=== PATIENT | female | born 1995 | race Caucasian/White ===

== ENCOUNTER 2018-04-07 20:41 | Emergency (ER) | payer SELFPAY ==
[~2018-04-07] VITALS: Ht 160 cm; Wt 54.4 kg
[~2018-04-07 20:41] MED LIST: CIPROFLOXACIN500 M2 ORAL; NKM
[2018-04-07] MEDS ORDERED: Norco 5mg/325mg tab ORAL ONE (21:00)
[2018-04-07] MEDS ORDERED: IBUPROFEN600 MG ORAL (21:06)
--- NOTE | 2018-04-07 21:07 | Emergency Room Report ---
History of Present Illness General Chief Complaint: Lower Extremity Injury Source: Patient Present Illness HPI Is a 22-year-old female with no past medical history. She presents with chief complaint of pain to the bottom of her great toe. Onset for about a week but worsened last 2 days. Pain with palpation or pushing off. Unable to walk well because of the pain. No trauma. No fever chills but no nausea no vomiting. Pain is sharp and throbbing in nature. 9 out of 10 when she to walk on it. Allergies: Coded Allergies: No Known Allergies (Unverified , 03/04/14) Patient History Past Medical History: see triage record, old chart reviewed Past Surgical History: none Pertinent Family History: none Social History: Denies: smoking Now: No Immunizations: other Reviewed Nursing Documentation: PMH: Agreed; PSxH: Agreed Nursing Documentation-PMH Past Medical History: No Stated History Review of Systems Eye: Denies: eye pain, blurred vision ENT: Denies: ear pain, nose congestion, throat swelling Respiratory: Denies: cough, shortness of breath Cardiovascular: Denies: chest pain, palpitations Gastrointestinal: Denies: abdominal pain, diarrhea, nausea, vomiting Musculoskeletal: Reports: joint pain; Denies: back pain Skin: Denies: rash Neurological: Denies: headache, numbness Endocrine: Denies: increased thirst, increased urine Hematologic/Lymphatic: Denies: easy bruising All Other Systems: negative except mentioned in HPI Physical Exam Vital Signs Date Time Temp Pulse Resp B/P (MAP) Pulse Ox O2 Delivery O2 Flow Rate FiO2 04/07/18 20:43 98.6 88 16 119/72 97 Room Air 98.6 vitals [email or web address] [id number] EP Interpretation: reviewed, normal General Appearance: well appearing, no apparent distress, alert Head: normocephalic, atraumatic Eyes: bilateral eye PERRL, bilateral eye EOMI ENT: hearing grossly normal, normal pharynx Neck: full range of motion, supple, no meningismus Respiratory: chest non-tender, lungs clear, normal breath sounds Cardiovascular #1: regular rate, rhythm, no murmur Gastrointestinal: normal bowel sounds, non tender, no mass, no organomegaly, no bruit, non-distended Musculoskeletal: back normal, gait/station normal, tender - right foot: Tenderness o the ball of the foot o flexion and extension of the great toe. Neurologic: alert, oriented x3 Psychiatric: mood/affect normal Skin: warm/dry Procedures Splinting Splinting : Consent: Verbal Location: foot Pre-Made Type: ortho shoe Pre-Proc Neuro Vasc Exam: normal Post-Proc Neuro Vasc Exam: normal Patient Tolerated: Well Complications: None Medical Decision Making Diagnostic Impression: Primary Impression: Toe tendinitis ER Course Patient presents with great toe tendinitis, AKA turf toe. No evidence of fracture dislocation. No evidence of septic joint. We'll discharge home Other X-Ray Diagnostic Results Other X-Ray Diagnostic Results : X-Ray ordered: xr foot, right # of Views/Limited Vs Complete: 3 View Indication: Pain PA Xray: Interpretation reviewed Interpretation: no dislocation, no soft tissue swelling, no fractures Impression: No acute disease Electronically Signed by: Deshaun Bella MD Last Vital Signs Date Time Temp Pulse Resp B/P (MAP) Pulse Ox O2 Delivery O2 Flow Rate FiO2 04/07/18 20:43 98.6 88 16 119/72 97 Room Air 98.6 Status: improved Disposition: HOME, SELF-CARE Condition: Stable Scripts Ibuprofen* (MOTRIN*) 600 Mg Tablet 600 MG ORAL THREE TIMES A DAY, #30 TAB 0 Refills Prov: DESHAUN BELLA M.D. 04/07/18 Referrals: NON PHYSICIAN (PCP) Additional Instructions: Follow up with your doctor in 7 days. If not better, may need referral to see [facility] or orthopedic doctor. Return if symptoms worsen. DESHAUN BELLA M.D. April 07, 2018 21:07
[2018-04-07 21:16] VITALS: BP 119/72
--- NOTE | 2018-04-08 08:57 | Diagnostic Imaging Report ---
Indication: Reason For Exam: PAIN Technique: Right foot, 3 views Comparison: None. Findings: The osseous structures are intact. There is no fracture or destruction. The visualized joints are normal. The soft tissues are unremarkable. Impression: Normal.
== END 2018-04-07 21:52 | disposition home or self-care (01) ==
LOC: EMR 21:00
DX: M77.51 Other enthesopathy of right foot and ankle (principal)
CPT/HCPCS: 29515; 99283

== ENCOUNTER 2019-01-11 23:28 | Emergency (ER) | payer BC ==
[~2019-01-11] VITALS: Ht 160 cm; Wt 52.2 kg
[~2019-01-11 23:28] MED LIST changes: +IBUPROFEN600 MG ORAL
[2019-01-11] MEDS ORDERED: NKM (23:43)
--- NOTE | 2019-01-11 23:45 | NUR ---
ED Nurse Note: pt came to ed from home c/o flu like symptoms x1 day. pt presents with cough, per pt she has pain when coughing 9/10 on chest.
[2019-01-11 23:47] VITALS: BP 117/83
[2019-01-12] MEDS ORDERED: Acetaminophen 500mg (ES) tab ORAL ONE (00:15)
[2019-01-12] MEDS ORDERED: Albuterol ud Inhalation HHN ONE (00:15)
[2019-01-12] MEDS ORDERED: Ipratropium 0.02% Inh Soln 2.5ml UD HHN ONE (00:15)
--- NOTE | 2019-01-12 00:50 | NUR ---
ED Nurse Note: breathing treatment completed
--- NOTE | 2019-01-12 01:00 | NUR ---
ED Nurse Note: chest xray completed
[2019-01-12] MEDS ORDERED: AMOXICILLIN500 MG ORAL (01:11)
[2019-01-12] MEDS ORDERED: TAMIFLU75 MG ORAL (01:11)
[2019-01-12] MEDS ORDERED: PREDNISONE20 MG ORAL (01:11)
[2019-01-12] MEDS ORDERED: ALBUTEROL SULF8.5 GM INH (01:11)
[2019-01-12] MEDS ORDERED: TYLENOL EXTRA500 MG ORAL (01:11)
[2019-01-12] MEDS ORDERED: PROMETHAZINE-C118 M1 ORAL (01:11)
[2019-01-12 01:19] VITALS: BP 127/73
--- NOTE | 2019-01-12 01:20 | NUR ---
ER DISCHARGE NOTE: Patient is cleared to be discharged per ERMD, pt is aox4, on room air, with stable vital signs. pt was given dc and prescription instructions, pt was able to verbalize understanding, pt id band removed. pt is able to ambulate with steady gait. pt took all belongings.
--- NOTE | 2019-01-12 03:20 | Emergency Room Report ---
History of Present Illness General Chief Complaint: Flu Like Symptoms Source: Patient Present Illness HPI 23-year-old female presents ED for evaluation. Complaining of body aches, chills, cough and fever 2 days. Pain is dull, 7 out of 10, nonradiating. Notes multiple episodes of coughing productive with greenish phlegm. Denies sick contacts or recent travel. Did not receive flu shot this year. Notes history of asthma. Denies smoking. No other aggravating relieving factors. Denies any other associated symptoms Allergies: Coded Allergies: No Known Allergies (Unverified , 03/04/14) Patient History Past Medical History: none Past Surgical History: none Pertinent Family History: none Social History: Denies: smoking, alcohol use, drug use Last Menstrual Period: dec Now: No Immunizations: UTD Reviewed Nursing Documentation: PMH: Agreed; PSxH: Agreed Nursing Documentation-PMH Past Medical History: No Stated History Review of Systems All Other Systems: negative except mentioned in HPI Physical Exam Vital Signs Date Time Temp Pulse Resp B/P (MAP) Pulse Ox O2 Delivery O2 Flow Rate FiO2 01/11/19 23:37 100.2 113 16 117/83 98 Room Air Sp02 EP Interpretation: reviewed, normal General Appearance: no apparent distress, alert, GCS 15, non-toxic Head: normocephalic Eyes: bilateral eye normal inspection, bilateral eye PERRL ENT: hearing grossly normal Neck: full range of motion, supple, no meningismus, supple/symm/no masses Respiratory: crackles, wheezing Cardiovascular #1: no edema, tachycardia Gastrointestinal: normal inspection Rectal: deferred Genitourinary: no CVA tenderness Musculoskeletal: normal inspection Neurologic: alert, oriented x3, responsive, motor strength/tone normal, sensory intact, speech normal Psychiatric: normal inspection Skin: normal inspection Lymphatic: normal inspection Medical Decision Making Diagnostic Impression: Primary Impression: Pneumonia Qualified Codes: J18.1 - Lobar pneumonia, unspecified organism Additional Impression: Influenza-like symptoms ER Course Hospital Course 23-year-old female presents to ED complaining of cough, fever, bodyaches Differential diagnoses include: URI, bronchitis, asthma/COPD, pneumonia Clinical course Patient placed on stretcher. After initial history and physical I ordered tylenol, prednisone and nebulizer treatment. Chest x-ray shows right lower lobe infiltrate Upon reassessment patient states cough and symptoms have improved. Discussed findings with patient. We'll treat for pneumonia. We'll add Tamiflu. Given amoxicillin here. per CURB 65 criteria patient can be treated as outpatient at this time. States she has a PMD Diagnosis - pneumonia, influenza like symptoms Stable and discharged home with prescriptions for Rx amoxicillin, tamiflu, tylneol, albuterol, prednisone, promethazine/codeine. Instructed to followup with PMD. Return to ED if symptoms recur or worsen Chest X-Ray Diagnostic Results Chest X-Ray Diagnostic Results : Chest X-Ray Ordered: Yes # of Views/Limited/Complete: 1 View Indication: Other - cough EP Interpretation: Yes Interpretation: no effusion, no pneumothorax, other - RLL infiltrate Impression: Other - pneumonia Electronically Signed by: Electronically signed by Ramses Hough MD Last Vital Signs Date Time Temp Pulse Resp B/P (MAP) Pulse Ox O2 Delivery O2 Flow Rate FiO2 01/12/19 01:19 98.9 107 20 127/73 98 Room Air Status: improved Disposition: HOME, SELF-CARE Condition: Stable Scripts Prednisone* (PREDNISONE*) 20 Mg Tablet 40 MG ORAL DAILY for 5 Days, TAB Prov: Ramses Hough MD 01/12/19 Albuterol Sulfate* (ALBUTEROL SULFATE MDI*) 8.5 Gm Hfa.aer.ad 2 PUFF INH Q6H, #1 EA 0 Refills Prov: Ramses Hough MD 01/12/19 Codeine/Promethazine Hcl* (PROMETHAZINE-CODEINE SYRUP*) 118 Ml Syrup 5 ML ORAL Q6H PRN for For Cough, #118 ML 0 Refills Prov: Ramses Hough MD 01/12/19 Oseltamivir Phosphate (Tamiflu) 75 Mg Capsule 75 MG ORAL TWICE A DAY for 5 Days, CAP Prov: Ramses Hough MD 01/12/19 Amoxicillin* (AMOXIL*) 500 Mg Capsule 500 MG ORAL THREE TIMES A DAY, #21 CAP Prov: Ramses Hough MD 01/12/19 Acetaminophen* (TYLENOL EXTRA STRENGTH*) 500 Mg Tablet 500 MG ORAL Q8H PRN for Prn Headache/Temp > 101, #30 TAB 0 Refills Prov: Ramses Hough MD 01/12/19 Referrals: NOT CHOSEN IPA/,REFERRING (PCP) Patient Instructions: Community-Acquired Pneumonia, Adult, [id number] Ramses Hough MD Jan 12, 2019 03:20
== END 2019-01-12 01:20 | disposition home or self-care (01) ==
LOC: EMR 23:55
DX: J18.9 Pneumonia, unspecified organism (principal); J11.1 Influenza due to unidentified influenza virus with other respiratory manifestations
CPT/HCPCS: 71045; 94640; 99284; J7512

== ENCOUNTER 2019-01-19 15:25 | Emergency (ER) | payer BC, OTHER ==
[~2019-01-19] VITALS: Ht 160 cm; Wt 52.2 kg
[~2019-01-19 15:25] MED LIST changes: +ALBUTEROL SULF8.5 GM INH; +AMOXICILLIN500 MG ORAL; +PREDNISONE20 MG ORAL; +PROMETHAZINE-C118 M1 ORAL; +TAMIFLU75 MG ORAL; +TYLENOL EXTRA500 MG ORAL
--- NOTE | 2019-01-19 15:45 | NUR ---
ED Nurse Note: pt walked in c/o weakness and unrelieved pneumonia sx, pt states she was in ED a week ago and was dx pneumonia and d/c but continued to have sob. pt AA&xo4, gcs=15, skin warm and dry, resp even and unlabored on RA, noted diminished LS, -n/v/d, ambulates w/ steady gait. will cont monitor.
[2019-01-19] MEDS ORDERED: Benzonatate 100mg Perles ORAL ONE (16:00)
[2019-01-19] MEDS ORDERED: Albuterol/Ipratropium 3ml neb HHN ONE (16:00)
--- NOTE | 2019-01-19 16:13 | Emergency Room Report ---
History of Present Illness General Chief Complaint: Generalized Weakness Source: Patient Present Illness HPI 23-year-old female patient presents ER complaining of cough, wheezing, dizziness. Reports dizziness symptoms present after cough. Denies syncope or fainting. Denies history of syncope or fainting episodes. Denies history of heart disease. Previously seen here 1 week ago for pneumonia, was discharged home with antibiotics and medication. Reports has been taking medication as instructed however still having wheezing symptoms. Reports is been using inhaler at home for asthma symptoms however has not improved her symptoms greatly. Denies . Denies fever, chest pain, shortness of breath. Denies hemoptysis. Denies calf pain. Denies recent travel. Denies smoking cigarettes. Denies taking control medication. Denies recent period of immobilization. Denies vision changes. Denies photophobia or phonophobia. Allergies: Coded Allergies: No Known Allergies (Unverified , 03/04/14) Patient History Past Medical History: see triage record Last Menstrual Period: now Now: No Reviewed Nursing Documentation: PMH: Agreed; PSxH: Agreed Nursing Documentation-PMH Past Medical History: No History, Except For Review of Systems All Other Systems: negative except mentioned in HPI Physical Exam Vital Signs Date Time Temp Pulse Resp B/P (MAP) Pulse Ox O2 Delivery O2 Flow Rate FiO2 01/19/19 15:29 98.2 88 20 119/80 97 Room Air Sp02 EP Interpretation: reviewed, normal General Appearance: well appearing, no apparent distress, alert, GCS 15, non- toxic Eyes: bilateral eye normal inspection, bilateral eye PERRL ENT: hearing grossly normal, normal pharynx, no angioedema, normal voice, TMs + canals normal, uvula midline, moist mucus membranes Neck: full range of motion, no meningismus, no bony tend Respiratory: lungs clear, no rhonchi, no respiratory distress, no accessory muscle use, decreased breath sounds, speaking full sentences Cardiovascular #1: regular rate, rhythm, no edema Gastrointestinal: non tender, soft, no mass, non-distended, no guarding, no rebound Musculoskeletal: back normal, digits/nails normal, gait/station normal, normal range of motion, non-tender, no calf tenderness, Devorah's Sign negative Neurologic: alert, oriented x3, responsive, nursing coordinator III-XII nml as tested, motor strength/tone normal, SLR negative, sensory intact, cerebellar normal, normal gait, speech normal Psychiatric: mood/affect normal Skin: no rash Medical Decision Making PA Attestation Dr. Mark is my supervising Physician whom patient management has been discussed with. Diagnostic Impression: Primary Impression: Asthma exacerbation Additional Impressions: History of pneumonia Dizziness ER Course Pt presents to ED c/o cough, wheezing, dizziness. DDX considered but are not limited to asthma, viral URI, influenza, bronchitis, pneumonia, PE, vertigo, OH, BPPV, Mnire's disease , anemia, electrolyte abnormality., No focal neuro deficits, cranial nerves intact as tested, low suspicion for central vertigo, does not require CT head at this time. Suspicion for PE per well's criteria, does not have any PE risk factors, denies hemoptysis, tachycardia, smoking, hormone medication. Low suspicion for central vertigo, VITAL SIGNS are WNL, patient is afebrile. ER COURSE CBC and CMP unremarkable, no elevation WBCs or LFTs, no electrolyte abnormalities, H&H normal UA unremarkable, no signs of infection requiring antibiotic treatment, urine negative EKG unremarkable shows no ST elevations or T wave inversions, no atrial fibrillation, low suspicion for cardiac etiology of symptoms, does not require cardiac workup at this time. Chest x-ray compared to previous chest x-ray from 1 week ago, improved symptoms , does not require further treatment with antibiotics. Patient provided with prednisone cough medication in the ER. Duoneb breathing treatment provided. Following treatment patient states no longer having difficulty with breathing. Lung sounds improved on repeat auscultation. Patient is resting comfortably in no acute distress. Patient resting comfortably no acute distress, nontoxic-appearing, okay for outpatient follow-up and discharge. ER precautions given. DISCHARGE: At this time pt is stable for d/c to home. Patient is resting comfortably in no acute distress, nontoxic appearing, able to answer questions without difficulty. Patient to take medications as instructed Will provide with patient care instructions and any necessary prescriptions. Care plan and follow-up instructions provided. Patient instructed to follow-up with primary care provider in 3 - 5 days. Patient questions asked and answered. Patient reports understanding and agreement to treatment plan. ER precautions given. Patient instructed to return to ER immediately for any new or worsening of symptoms including but not limited to increasing SOB, persistent fever. - Please note that this Emergency Department Report was dictated using [employer] technology software, occasionally this can lead to erroneous entry secondary to interpretation by the dictation equipment. Labs Test 01/19/19 16:03 01/19/19 16:05 White Blood Count 9.8 K/UL (4.8-10.8) Red Blood Count 4.95 M/UL (4.20-5.40) Hemoglobin 14.2 G/DL (12.0-16.0) Hematocrit 43.9 % (37.0-47.0) Mean Corpuscular Volume 89 FL (80-99) Mean Corpuscular Hemoglobin 28.8 PG (27.0-31.0) Mean Corpuscular Hemoglobin Concent 32.4 G/DL (32.0-36.0) Red Cell Distribution Width 11.1 % (11.6-14.8) Platelet Count 303 K/UL (150-450) Mean Platelet Volume 6.0 FL (6.5-10.1) Neutrophils (%) (Auto) 50.9 % (45.0-75.0) Lymphocytes (%) (Auto) 39.4 % (20.0-45.0) Monocytes (%) (Auto) 6.8 % (1.0-10.0) Eosinophils (%) (Auto) 1.7 % (0.0-3.0) Basophils (%) (Auto) 1.3 % (0.0-2.0) Sodium Level 139 MMOL/L (136-145) Potassium Level 3.8 MMOL/L (3.5-5.1) Chloride Level 102 MMOL/L (98-107) Carbon Dioxide Level 30 MMOL/L (21-32) Anion Gap 7 mmol/L (5-15) Blood Urea Nitrogen 12 mg/dL (7-18) Creatinine 0.7 MG/DL (0.55-1.30) Estimat Glomerular Filtration Rate > 60 mL/min (>60) Glucose Level 80 MG/DL (74-106) Calcium Level 9.8 MG/DL (8.5-10.1) Total Bilirubin 0.4 MG/DL (0.2-1.0) Aspartate Amino Transf (AST/SGOT) 27 U/L (15-37) Alanine Aminotransferase (ALT/SGPT) 49 U/L (12-78) Alkaline Phosphatase 78 U/L (46-116) Total Protein 7.8 G/DL (6.4-8.2) Albumin 4.3 G/DL (3.4-5.0) Globulin 3.5 g/dL Albumin/Globulin Ratio 1.2 (1.0-2.7) Urine Color Pale yellow Urine Appearance Slightly cloudy Urine pH 6.5 (4.5-8.0) Urine Specific [place] 1.010 (1.005-1.035) Urine Protein Negative (NEGATIVE) Urine Glucose (UA) Negative (NEGATIVE) Urine Ketones Negative (NEGATIVE) Urine Blood 5+ (NEGATIVE) Urine Nitrite Negative (NEGATIVE) Urine Bilirubin Negative (NEGATIVE) Urine Urobilinogen Normal MG/DL (0.0-1.0) Urine Leukocyte Esterase Negative (NEGATIVE) Urine RBC Tntc /HPF (0 - 2) Urine WBC 0-2 /HPF (0 - 2) Urine Squamous Epithelial Cells Few /LPF (NONE/OCC) Urine Bacteria Few /HPF (NONE) Urine HCG, Qualitative Negative (NEGATIVE) EKG Diagnostic Results Rate: normal Rhythm: NSR ST Segments: no acute changes ASA given to the pt in ED: No PA Scribe Text Alvin Lara PA-C Rhythm Strip Diag. Results EP Interpretation: yes Rate: 84 Rhythm: NSR, no PVC's, no ectopy PA Scribe Text Alvin Lara PA-C Last Vital Signs Date Time Temp Pulse Resp B/P (MAP) Pulse Ox O2 Delivery O2 Flow Rate FiO2 01/19/19 15:29 98.2 88 20 119/80 97 Room Air Status: improved Disposition: HOME, SELF-CARE Condition: Stable Scripts Albuterol Sulfate* (ALBUTEROL SULFATE MDI*) 8.5 Gm Hfa.aer.ad 2 PUFF INH Q6H, #1 INH 0 Refills Prov: Alexander Lara P.A. 01/19/19 Acetaminophen* (TYLENOL EXTRA STRENGTH*) 500 Mg Tablet 500 MG ORAL Q8H PRN for Prn Headache/Temp > 101, #30 TAB 0 Refills Prov: Alexander Lara P.A. 01/19/19 Benzonatate* (TESSALON PERLE*) 100 Mg Capsule 100 MG ORAL THREE TIMES A DAY, #30 PERLE Prov: Alexander Lara.A. 01/19/19 Ibuprofen* (MOTRIN*) 600 Mg Tablet 600 MG ORAL Q8H PRN for For Pain, #30 TAB 0 Refills Prov: Alexander Lara 01/19/19 Patient Instructions: Asthma Attack Prevention, Asthma, Acute Bronchospasm, Community-Acquired Pneumonia, Adult, [id number], Dizziness, [id number] Additional Instructions: Followup with primary care provider in 3 -5 days. Discuss further treatment and referral at that time, discussed need for further asthma medication. Take medications as directed. Patient questions asked and answered. ER precautions given, patient instructed to return to ER immediately for any new or worsening of symptoms. Alexander Lara Jan 19, 2019 16:13
[2019-01-19 16:30] VITALS: BP 118/72
--- NOTE | 2019-01-19 16:32 | NUR ---
ED Nurse Note: RT at the bedside for breathing tx.
[2019-01-19 16:34] LABS: APPEARANCE,URINE SLIGHTLY CLOUDY; BILIRUBIN, URINE NEGATIVE (NEGATIVE); COLOR,URINE PALE YELLOW; GLUCOSE, URINE (UA) NEGATIVE (NEGATIVE); KETONES,URINE NEGATIVE (NEGATIVE); LEUKOCYTE ESTERASE ,URINE NEGATIVE (NEGATIVE); NITRITE,URINE NEGATIVE (NEGATIVE); PH,URINE 6.5 (4.5-8.0); PROTEIN,URINE NEGATIVE (NEGATIVE); UROBILINOGEN,URINE NORMAL MG/DL (0.0-1.0)
[2019-01-19 16:35] LABS: BASOPHILS % (AUTO) 1.3 % (0.0-2.0); EOSINOPHILS % (AUTO) 1.7 % (0.0-3.0); HEMATOCRIT 43.9 % (37.0-47.0); HEMOGLOBIN 14.2 G/DL (12.0-16.0); LYMPHOCYTES % (AUTO) 39.4 % (20.0-45.0); MEAN CORPUSCULAR VOLUME 89 FL (80-99); MONOCYTES % (AUTO) 6.8 % (1.0-10.0); NEUTROPHILS % (AUTO) 50.9 % (45.0-75.0); PLATELET COUNT 303 K/UL (150-450); RED BLOOD COUNT 4.95 M/UL (4.20-5.40); RED CELL DISTRIBUTION WIDTH 11.1 % (11.6-14.8); WHITE BLOOD COUNT 9.8 K/UL (4.8-10.8)
[2019-01-19 16:37] LABS: ANION GAP 7 mmol/L (5-15); BLOOD UREA NITROGEN 12 mg/dL (7-18); CALCIUM 9.8 MG/DL (8.5-10.1); CARBON DIOXIDE 30 MMOL/L (21-32); CHLORIDE 102 MMOL/L (98-107); CREATININE 0.7 MG/DL (0.55-1.30); POTASSIUM 3.8 MMOL/L (3.5-5.1); SODIUM 139 MMOL/L (136-145)
[2019-01-19 16:44] LABS: ALANINE AMINOTRANSFERASE 49 U/L (12-78); ALBUMIN 4.3 G/DL (3.4-5.0); ALBUMIN/GLOBULIN RATIO 1.2 (1.0-2.7); ALKALINE PHOSPHATASE 78 U/L (46-116); ASPARTATE AMINO TRANSFERASE 27 U/L (15-37); BILIRUBIN,TOTAL 0.4 MG/DL (0.2-1.0)
[2019-01-19] MEDS ORDERED: TESSALON PERLE100 MG ORAL (17:39)
[2019-01-19] MEDS ORDERED: IBUPROFEN600 MG ORAL (17:39)
[2019-01-19] MEDS ORDERED: ALBUTEROL SULF8.5 GM INH (17:39)
[2019-01-19] MEDS ORDERED: TYLENOL EXTRA500 MG ORAL (17:39)
--- NOTE | 2019-01-19 17:50 | NUR ---
ED Nurse Note: pt cleared to be d/c per ER provider, pt states she feels better with med and breathing tx, pt advised to follow up with pcp or return to ed if sx worsen or new sx develop, pt discharge and aftercare instruction provided w/ prescription, pt education done via discussion and handout, pt verbalized understanding and agrees with plan, vss, ambulatory w/steady gait, wristband removed, left w/ all belongings, resp even and unlabored on RA, accompanied by mother.
[2019-01-19 17:54] VITALS: BP 121/74
--- NOTE | 2019-01-20 11:45 | Diagnostic Imaging Report ---
Indication: Cough Technique: One view of the chest Comparison: 01/12/2019 Findings: Lungs and pleural spaces are clear. Heart size is normal. Previously demonstrated right basilar infiltrate is no longer evident. Impression: No acute process
== END 2019-01-19 17:49 | disposition home or self-care (01) ==
LOC: EMR 16:01
DX: J44.1 Chronic obstructive pulmonary disease with (acute) exacerbation (principal); R42 Dizziness and giddiness; Z87.01 Personal history of pneumonia (recurrent)
CPT/HCPCS: 36415; 71045; 80053; 81003; 81025; 85025; 93005; 94640; 94664; 99284; J7512; J7620

== ENCOUNTER 2019-04-28 16:13 | Emergency (ER) | payer OTHER ==
[~2019-04-28] VITALS: Ht 160 cm; Wt 53.5 kg
[~2019-04-28 16:13] MED LIST changes: +TESSALON PERLE100 MG ORAL
--- NOTE | 2019-04-28 16:31 | NUR ---
ED Nurse Note: PT WALKED IN TO ER TODAY FROM HOME. AOX4. PT C/O PRODUCTIVE PAINFUL COUGH, SORE THROAT, BODY ACHES, AND CONGESTION X 1 WEEK AGO. PT DENIES FEVER, NAUSEA, OR VOMITING. NO SIGNS OF RESPIRATORY DISTRESS, RETRACTIONS, OR ACCESSORY MUSCLE USE NOTED. PT ABLE TO SPEAK IN FULL SENTENCES.
[2019-04-28 16:33] VITALS: BP 122/78
--- NOTE | 2019-04-28 16:48 | Emergency Room Report ---
History of Present Illness General Chief Complaint: Upper Respiratory Illness Source: Patient Present Illness HPI 23-year-old female with history of pneumonia 1 year ago here complaining over 2 weeks of exacerbation of cough with green and yellow phlegm. Patient reports that her symptoms started with sore throat and fever and chills however denies fever and chills at this point. Patient also complaining of congestion and rhinorrhea. Denies abdominal pain, nausea vomiting, and has no history of smoking. Patient has been taking some [id number] cough medication with minimal relief. Patient reports that her chest and back have a 10 out of 10 pain every time she coughs. Also reports minimal wheezing at nighttime. Otherwise denies chest pain, shortness of breath, palpitation, and all other associated symptoms. Allergies: Coded Allergies: No Known Allergies (Unverified , 03/04/14) Patient History Past Medical History: see triage record Past Surgical History: unable to obtain Pertinent Family History: none Now: No Immunizations: UTD Reviewed Nursing Documentation: PMH: Agreed; PSxH: Agreed Nursing Documentation-PMH Past Medical History: No History, Except For Review of Systems All Other Systems: negative except mentioned in HPI Physical Exam Vital Signs Date Time Temp Pulse Resp B/P (MAP) Pulse Ox O2 Delivery O2 Flow Rate FiO2 04/28/19 16:20 97.7 100 18 124/74 (91) 99 Room Air Sp02 EP Interpretation: reviewed, normal General Appearance: normal inspection, well appearing, no apparent distress, alert Head: normocephalic, atraumatic Eyes: bilateral eye normal inspection, bilateral eye PERRL ENT: TMs + canals normal, uvula midline, moist mucus membranes, dry mucus membranes, pharyngeal erythema Neck: normal inspection, full range of motion, supple Respiratory: chest non-tender, no rhonchi, no respiratory distress, no retraction, wheezing - Mild wheezing noted bilateral lower lobes, other - No crackles noted as patient is concerned about pneumonia patient has no fever Cardiovascular #1: normal inspection, normal peripheral pulses, regular rate, rhythm, no edema, no murmur Gastrointestinal: normal inspection, normal bowel sounds, soft Genitourinary: no CVA tenderness Musculoskeletal: normal inspection, back normal Neurologic: normal inspection, alert, oriented x3, responsive Psychiatric: normal inspection, judgement/insight normal Skin: normal inspection, normal color, no rash, warm/dry Lymphatic: normal inspection, no adenopathy Medical Decision Making PA Attestation All my diagnosis and treatment plans were reviewed ad discussed with my supervising physician Dr. Bailey Diagnostic Impression: Primary Impression: Bronchitis ER Course 23-year-old female with history of pneumonia 1 year ago here complaining over 2 weeks of exacerbation of cough with green and yellow phlegm. Patient reports that her symptoms started with sore throat and fever and chills however denies fever and chills at this point. Patient also complaining of congestion and rhinorrhea. Denies abdominal pain, nausea vomiting, and has no history of smoking. Patient has been taking some pyki-hld-[id number] cough medication with minimal relief. Patient reports that her chest and back have a 10 out of 10 pain every time she coughs. Also reports minimal wheezing at nighttime. Otherwise denies chest pain, shortness of breath, palpitation, and all other associated symptoms. Ddx considered but are not limited to: bronchitis, PNA, URI viral, bacterial bronchitis Vital signs: are WNL, pt. is afebrile H&PE are most consistent with: Bacterial bronchitis due to severity of symptoms and wheezing ORDERS: Albuterol inhaler, Flonase nasal spray, azithromycin, Tessalon Perles ED INTERVENTIONS: None required at this time. DISCHARGE: At this time pt. is stable for d/c to home. Will provide printed patient care instructions, and any necessary prescriptions. Care plan and follow up instructions have been discussed with the patient prior to discharge. At this point patient is assured that no imaging is needed as there is mild wheezing in her lungs no sign of pneumonia due to no fever and crackles also treatment remains the same for chronic bronchitis versus pneumonia patient agrees with the above treatment and to follow-up with her primary care provider if her cough lingers for several weeks. Last Vital Signs Date Time Temp Pulse Resp B/P (MAP) Pulse Ox O2 Delivery O2 Flow Rate FiO2 04/28/19 16:33 98.0 92 16 122/78 100 Room Air Disposition: HOME, SELF-CARE Condition: Stable Scripts Fluticasone Propionate (Flonase Allergy Relief) 9.9 Ml Secretary.susp 2 SPRAYS NS BID, #10 ML Prov: Swapnil Bonds 04/28/19 Albuterol Sulfate (VENTOLIN HFA) 18 Gm Hfa.aer.ad 2 PUFFS INH EVERY 6 HOURS, #18 GM 0 Refills Prov: Swapnil Bonds 04/28/19 Benzonatate* (TESSALON PERLE*) 100 Mg Capsule 100 MG ORAL THREE TIMES A DAY, #21 PERLE Prov: Swapnil Bonds 04/28/19 Azithromycin* (ZITHROMAX*) 250 Mg Tablet 250 MG ORAL DAILY, #6 TAB 0 Refills Take two tables once daily for 1 day, then one tablet once daily for 4 days. Prov: Swapnil Bonds 04/28/19 Patient Instructions: Acute Bronchitis, [id number] Swapnil Bonds Apr 28, 2019 16:48
[2019-04-28] MEDS ORDERED: VENTOLIN HFA18 GM INH (16:50)
[2019-04-28] MEDS ORDERED: FLONASE ALLERG9.9 ML NS (16:50)
[2019-04-28] MEDS ORDERED: TESSALON PERLE100 MG ORAL (16:50)
[2019-04-28] MEDS ORDERED: ZITHROMAX250 MG ORAL (16:50)
--- NOTE | 2019-04-28 16:55 | NUR ---
ED Nurse Note: PT SITTING PEACEFULLY IN CHAIR IN NAD. AOX4. PRESCRIPTIONS AND DISCHARGE PAPERWORK EXPLAINED TO PT. PT VERBALIZES UNDERSTANDING AND ALL QUESTIONS ANSWERED. PRESCRIPTIONS AND DISCHARGE PAPERWORK GIVEN TO PT AND ID WRISTBAND REMOVED. PT WALKED OUT OF ER WITH STEADY GAIT AND ALL BELONGINGS.
[2019-04-28 16:56] VITALS: BP 118/76
== END 2019-04-28 16:57 | disposition home or self-care (01) ==
LOC: EMR 16:48
DX: J20.9 Acute bronchitis, unspecified (principal)
CPT/HCPCS: 99282